=== PATIENT | female | born 2000 | race Caucasian/White ===

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

== ENCOUNTER 2019-04-07 19:46 | Emergency (ER) | payer MEDICAID ==
[~2019-04-07] VITALS: Ht 167.6 cm; Wt 88.5 kg
--- NOTE | 2019-04-07 20:16 | ED Lower Extremity ---
General Chief Complaint: Lower Extremity Stated Complaint: R ANKLE INJ Nursing Triage Note: PT STATES SHE ROLLED HER ANKLE AROUIND 1500, UNABLE TO PUT WEIGHT ON IT. Source: patient Exam Limitations: no limitations History of Present Illness Date Seen by Provider: Apr 07, 2019 Time Seen by Provider: 20:15 Initial Comments To ER with reports of having rolled the ankle around 3 PM today. She is unable to put weight on it. Onset: this afternoon Severity: moderate Pain/Injury Location: right ankle Method of Injury: unknown Modifying Factors: Worse With Movement Allergies and Home Medications Allergies Coded Allergies: Penicillins (Verified Allergy, Unknown, 05/20/15) iodine (Verified Allergy, Unknown, HIVES, 05/20/15) Patient Home Medication List Home Medication List Reviewed: Yes Review of Systems Constitutional: see HPI EENTM: see HPI Respiratory: no symptoms reported Cardiovascular: no symptoms reported Genitourinary: no symptoms reported Musculoskeletal: see HPI Skin: no symptoms reported Psychiatric/Neurological: No Symptoms Reported Past Yrynghs-Mwpunt-Jzciwp Hx Patient Social History Alcohol Use: Denies Use Recreational Drug Use: No Smoking Status: Current Everyday Smoker Type Used: Cigarettes Recent Foreign Travel: No Contact w/Someone Who Travel: No Recent Infectious Disease Expo: No Recent Hopitalizations: No Physical Abuse: No Sexual Abuse: No Mistreated: No Fear: No Immunizations Up To Date PED Vaccines UTD: Yes Seasonal Allergies Seasonal Allergies: Yes Past Medical History Surgeries: Yes (TIP OF FINGER REATTACHED-REQUIRED ADDITIONAL SX ON FINGER, LEFT ARM FX) Adenoidectomy, Appendectomy, Orthopedic, Tonsillectomy Respiratory: No Cardiac: No Neurological: Yes Headaches /Migraines Reproductive Disorders: No Sexually Transmitted Disease: No Genitourinary: No Gastrointestinal: No Musculoskeletal: Yes (LOW BACK SPASIMS) Endocrine: No Tonsilitis Cancer: No Psychosocial: No Integumentary: No Blood Disorders: No Physical Exam Vital Signs Vital Signs - First Documented 04/07/19 19:58 Temp 98.2 Pulse 83 Resp 20 B/P (MAP) 128/61 O2 Delivery Room Air Capillary Refill : Height, Weight, BMI Height: 5'6.00" Weight: 195lbs. oz. 88.165610sy; 28.12 BMI Method:Stated General Appearance: WD/WN Respiratory: no respiratory distress, no accessory muscle use Hips: bilateral hip non-tender, bilateral hip normal inspection, bilateral hip normal range of motion Legs: bilateral leg non-tender, bilateral leg normal inspection, bilateral leg normal range of motion Knees: bilateral knee non-tender, bilateral knee normal inspection, bilateral knee normal range of motion Ankles: right ankle pain, right ankle soft tissue tenderness, right ankle swelling Feet: bilateral foot non-tender, bilateral foot normal inspection, bilateral foot normal range of motion Neurologic/Psychiatric: alert, normal mood/affect, oriented x 3 Skin: normal color, warm/dry Progress/Results/Core Measures Results/Orders My Orders Orders - ARIK LIAO APRN Ankle, Right, 3 Views (04/07/19 20:12) Vital Signs/I&O 04/07/19 19:58 Temp 98.2 Pulse 83 Resp 20 B/P (MAP) 128/61 O2 Delivery Room Air Diagnostic Imaging Diagonstic Imaging: Xray Comments NAME: [facility] REC#: [id number] PT STATUS: REG ER : 2000 PHYSICIAN: ARIK LIAO APRN ADMIT DATE: 04/07/19/ER Draft Date of Exam:04/07/19 ANKLE, RIGHT, 3 VIEWS INDICATION: Rolled ankle stepping off a porch. Pain. EXAMINATION: Right ankle 04/07/2019 FINDINGS: Three views of the ankle. Soft tissue prominence about the ankle is noted. Ankle mortise, however, is intact. No dislocations are seen with no displaced fractures noted. A linear lucency along the distal fibula most likely the residual faint growth plate less likely a nondisplaced fracture line best seen on the oblique view. Remaining osseous structures appear unremarkable. IMPRESSION: 1. Diffuse soft tissue swelling with a very vague lucency along the distal fibula noted but possibly caused by the normal site of the patient's growth plates, see above discussion. If pain persists, 7-10 day followup recommended. Dictated on workstation # [id number] Dict: 04/07/192024 Trans: 04/07/192029 [facility] [id number] Interpreted by: SANTI HANDY MD Electronically signed by: Departure Impression Primary Impression: Ankle sprain Qualified Codes: S93.401A - Sprain of unspecified ligament of right ankle, initial encounter Disposition: 01 HOME, SELF-CARE Condition: Stable Departure-Patient Inst. Decision time for Depature: 20:35 Referrals: DEBORAH LAWRENCE MD (PCP/Family) Primary Care Physician Patient Instructions: Ankle Sprain (DC) Add. Discharge Instructions: 1. Keep the Jakob wrap on for the next 2-3 days to help limit swelling. Use an ice pack as much as possible for 30 minutes every 1-2 hours for the next 2-3 days. Keep this elevated as much as possible for the next 2-3 days. Take Tylenol and ibuprofen as needed for pain control. Use the crutches. Whenever you are able to walk without significant pain and you can stop using the crutches. Wear the ankle brace for the next 2-3 weeks. Follow-up with your doctor next week for reevaluation which may or may not include x-rays repeated if pain persists. All discharge instructions reviewed with patient and/or family. Voiced understanding. ARIK LIAO APRN Apr 07, 2019 20:16
--- NOTE | 2019-04-07 20:31 | Diagnostic Imaging Report ---
INDICATION: Rolled ankle stepping off a porch. Pain. EXAMINATION: Right ankle 04/07/2019 FINDINGS: Three views of the ankle. Soft tissue prominence about the ankle is noted. Ankle mortise, however, is intact. No dislocations are seen with no displaced fractures noted. A linear lucency along the distal fibula most likely the residual faint growth plate less likely a nondisplaced fracture line best seen on the oblique view. Remaining osseous structures appear unremarkable. IMPRESSION: 1. Diffuse soft tissue swelling with a very vague lucency along the distal fibula noted but possibly caused by the normal site of the patient's growth plates, see above discussion. If pain persists, 7-10 day followup recommended. Dictated by: Dictated on workstation # [id number]
== END 2019-04-07 20:58 | disposition home or self-care (01) ==
LOC: EDUNIT# 19:46 → ER 19:47
DX: S93.401A Sprain of unspecified ligament of right ankle, initial encounter (principal); G43.909 Migraine, unspecified, not intractable, without status migrainosus; F17.210 Nicotine dependence, cigarettes, uncomplicated; Z90.49 Acquired absence of other specified parts of digestive tract; Z90.89 Acquired absence of other organs; Z88.0 Allergy status to penicillin; Z91.041 Radiographic dye allergy status; X50.1XXA Overexertion from prolonged static or awkward postures, initial encounter
CPT/HCPCS: 73610

== ENCOUNTER 2020-09-20 11:41 | Emergency (ER) | payer SELFPAY ==
[~2020-09-20] VITALS: Ht 167.7 cm; Wt 72.7 kg
--- NOTE | 2020-09-20 12:10 | ED Upper Extremity ---
General Chief Complaint: Upper Extremity Stated Complaint: R HAND INDEX FINGER SWELLING Nursing Triage Note: AMB TO ROOM CRYING REPORTS THAT SINCE YESTERDAY HAS HAD PAIN AND SWELLING IN R INDEX FINGER NO INJURY Nursing Sepsis Screen: No Definite Risk Source: patient Exam Limitations: no limitations History of Present Illness Date Seen by Provider: Sep 20, 2020 Time Seen by Provider: 12:09 Initial Comments This is a 19 yo Female who presents to the ER with complaints of right index finger pain 2 days. states she noted a splinter in her finger and attempted to pick it out. Yesterday, became red and painful and started swelling today. Denies any trauma to the area. Does admit to recently utilizing methamphetamines yesterday via smoking. Currently rates pain 10 out of 10 and her right index finger and at the base of her finger in her palm. Denies fevers, chills, cough, shortness of breath, nausea, vomiting, diarrhea. Allergies and Home Medications Allergies Coded Allergies: Penicillins (Verified Allergy, Unknown, 05/20/15) iodine (Verified Allergy, Unknown, HIVES, 05/20/15) Patient Home Medication List Home Medication List Reviewed: Yes Review of Systems Constitutional: no symptoms reported EENTM: no symptoms reported Respiratory: no symptoms reported Cardiovascular: no symptoms reported Gastrointestinal: no symptoms reported Genitourinary: no symptoms reported : No Musculoskeletal: other (right index finger pain.) Skin: other ( Erythema and swelling to right index finger extending past her knuckle ) Psychiatric/Neurological: Anxiety Past Ryfueua-Ierllx-Augpty Hx Patient Social History Alcohol Use: Occasionally Uses Recreational Drug Use: Yes (METH) Smoking Status: Current Everyday Smoker Type Used: Cigarettes Recent Foreign Travel: No Contact w/Someone Who Travel: No Recent Infectious Disease Expo: No Recent Hopitalizations: No Immunizations Up To Date PED Vaccines UTD: Yes Seasonal Allergies Seasonal Allergies: Yes Past Medical History Surgeries: Yes (TIP OF FINGER REATTACHED-REQUIRED ADDITIONAL SX ON FINGER, LEFT ARM FX) Adenoidectomy, Appendectomy, Orthopedic, Tonsillectomy Respiratory: No Cardiac: No Neurological: Yes Headaches /Migraines Reproductive Disorders: No Sexually Transmitted Disease: No Genitourinary: No Gastrointestinal: No Musculoskeletal: Yes (LOW BACK SPASIMS) Endocrine: No Tonsilitis Cancer: No Psychosocial: No Integumentary: No Blood Disorders: No Physical Exam Vital Signs Vital Signs - First Documented 09/20/20 11:57 Temp 37.0 Pulse 100 Resp 18 B/P (MAP) 136/86 (103) Pulse Ox 99 O2 Delivery Room Air Capillary Refill : Less Than 3 Seconds Height, Weight, BMI Height: 5'6.00" Weight: 195lbs. oz. 88.865506tx; 25.00 BMI Method:Stated General Appearance: WD/WN, no apparent distress HEENT: normal ENT inspection, pharynx normal Neck: full range of motion, normal inspection Cardiovascular: regular rate, rhythm, no murmur Respiratory: normal breath sounds, no respiratory distress Gastrointestinal: normal bowel sounds, non tender, soft Back: normal inspection, no vertebral tenderness Shoulder: normal inspection, normal ROM Elbow/Forearm: normal inspection, non-tender, no evidence of injury, normal ROM Wrist: Yes normal inspection, Yes non-tender, Yes no evidence of injury, Yes normal ROM Hand: soft tissue tenderness (Right index finger extending proximally past her knuckle on the volar and dorsal aspects of her hand ), swelling Neurologic/Psychiatric: no motor/sensory deficits, alert, normal mood/affect, oriented x 3 Skin: normal color, warm/dry Progress/Results/Core Measures Results/Orders Lab Results Laboratory Tests Test 09/20/20 12:09 09/20/20 12:28 09/20/20 12:33 09/20/20 16:20 Range/Units Urine Color ORANGE Urine Clarity CLEAR Urine pH 6.0 5-9 [address] [place] >=1.030 1.016-1.022 Urine Protein NEGATIVE NEGATIVE Urine Glucose (UA) NEGATIVE NEGATIVE Urine Ketones NEGATIVE NEGATIVE Urine Nitrite NEGATIVE NEGATIVE Urine Bilirubin NEGATIVE NEGATIVE Urine Urobilinogen 0.2 < = 1.0 MG/DL Urine Leukocyte Esterase 1+ H NEGATIVE Urine RBC (Auto) NEGATIVE NEGATIVE Urine RBC NONE /HPF Urine WBC 25-50 H /HPF Urine Squamous Epithelial Cells 2-5 /HPF Urine Crystals PRESENT H /LPF Urine Calcium Oxalate Crystals FEW H /LPF Urine Bacteria FEW H /HPF Urine Casts NONE /LPF Urine Mucus SMALL H /LPF Urine Trichomonas FEW H /HPF Urine Culture Indicated YES White Blood Count 13.2 H 4.3-11.0 10^3/uL Red Blood Count 4.20 3.80-5.11 10^6/uL Hemoglobin 13.0 11.5-16.0 g/dL Hematocrit 40 35-52 % Mean Corpuscular Volume 95 80-99 fL Mean Corpuscular Hemoglobin 31 25-34 pg Mean Corpuscular Hemoglobin Concent 33 32-36 g/dL Red Cell Distribution Width 13.3 10.0-14.5 % Platelet Count 324 130-400 10^3/uL Mean Platelet Volume 8.9 L 9.0-12.2 fL Immature Granulocyte % (Auto) 0 % Neutrophils (%) (Auto) 75 42-75 % Lymphocytes (%) (Auto) 19 12-44 % Monocytes (%) (Auto) 6 0-12 % Eosinophils (%) (Auto) 1 0-10 % Basophils (%) (Auto) 0 0-10 % Neutrophils # (Auto) 9.9 H 1.8-7.8 10^3/uL Lymphocytes # (Auto) 2.5 1.0-4.0 10^3/uL Monocytes # (Auto) 0.7 0.0-1.0 10^3/uL Eosinophils # (Auto) 0.1 0.0-0.3 10^3/uL Basophils # (Auto) 0.0 0.0-0.1 10^3/uL Immature Granulocyte # (Auto) 0.0 0.0-0.1 10^3/uL Sodium Level 142 135-145 MMOL/L Potassium Level 3.6 3.6-5.0 MMOL/L Chloride Level 104 98-107 MMOL/L Carbon Dioxide Level 29 21-32 MMOL/L Anion Gap 9 5-14 MMOL/L Blood Urea Nitrogen 11 7-18 MG/DL Creatinine 0.70 0.60-1.30 MG/DL Estimat Glomerular Filtration Rate > 60 BUN/Creatinine Ratio 16 Glucose Level 82 70-105 MG/DL Calcium Level 9.8 8.5-10.1 MG/DL Corrected Calcium 9.6 8.5-10.1 MG/DL Total Bilirubin 0.3 0.1-1.0 MG/DL Aspartate Amino Transf (AST/SGOT) 15 5-34 U/L Alanine Aminotransferase (ALT/SGPT) 24 0-55 U/L Alkaline Phosphatase 105 40-136 U/L Total Protein 7.2 6.4-8.2 GM/DL Albumin 4.2 3.2-4.5 GM/DL Erythrocyte Sedimentation Rate 19 0-20 MM/HR C-Reactive Protein High Sensitivity 1.20 H 0.00-0.50 MG/DL Coronavirus 2019 (STEF) Negative Negative My Orders Orders - COY GARCIA [employer] Ua Culture If Indicated (09/20/20 12:04) Urine Bedside - Sdc (09/20/20 12:04) Neisseria Gonorrhea Swab (09/20/20 12:04) Genital Culture (09/20/20 12:04) Chlamydia Trachomatis Swab (09/20/20 12:04) Finger(S) (09/20/20 12:04) Cbc With Automated Diff (09/20/20 12:04) Comprehensive Metabolic Panel (09/20/20 12:04) Fentanyl Injection (Sublimaze Injection (09/20/20 12:15) Urine Culture (09/20/20 12:09) Blood Culture (09/20/20 12:58) Fentanyl Injection (Sublimaze Injection (09/20/20 13:15) Clindamycin 600 Mg/50 Ml Ivpb (Cleocin P (09/20/20 14:00) Hydromorphone Injection (Dilaudid Inject (09/20/20 14:00) Hs C Reactive Protein (09/20/20 14:33) Erythrocyte Sedimentation Rate (09/20/20 14:33) Covid 19 Inhouse Test (09/20/20 16:16) Hydromorphone Injection (Dilaudid Inject (09/20/20 16:45) Medications Given in ED Current Medications Medications Dose Ordered Sig/Wilfrid Route Start Time Stop Time Status Last Admin Dose Admin Clindamycin Phosphate/Dextrose 50 ml @ 100 mls/hr ONCE ONCE IV 09/20/20 14:00 09/20/20 14:29 DC 09/20/20 14:27 100 MLS/HR Fentanyl Citrate 25 mcg ONCE PRN IVP 09/20/20 12:15 09/20/20 13:25 25 MCG Fentanyl Citrate 50 mcg ONCE ONCE IVP 09/20/20 13:15 09/20/20 13:16 DC 09/20/20 13:26 50 MCG Hydromorphone HCl 0.25 mg ONCE ONCE IVP 09/20/20 14:00 09/20/20 14:01 DC 09/20/20 14:24 0.25 MG Hydromorphone HCl 0.5 mg ONCE ONCE IV 09/20/20 16:45 09/20/20 16:46 DC 09/20/20 16:40 0.5 MG Vital Signs/I&O 09/20/20 09/20/20 11:57 15:54 Temp 37.0 Pulse 100 86 Resp 18 B/P (MAP) 136/86 (103) 129/68 (88) Pulse Ox 99 100 O2 Delivery Room Air Blood Pressure Mean: 103 Progress Progress Note : Progress Note Orders placed for labs, and radiographs of right index finger. Images show NAD. Orders placed for Clindamycin 600MG IV. Patient will likely require incision and drainage as well as IV antibiotics. 1336: CALLED DR. BOATENG AND DISCUSSED CASE, RECOMMENDED REFERRING TO HAND SURGEON IF AVAILABLE. 1345: ATTEMPTED TO CALL DR. PEDERSON HAND SPECIALIST AT [address], PENDING RETURN CALL. 1420: UNABLE TO MAKE CONTACT WITH DR. PEDERSON, CALLED [facility] AT THIS TIME. PATIENT DECLINED D/T HOSPITAL DIVERSION. 1421: [place] [facility], CONSULTED WITH DR. GUERIN WHO RECOMMENDED INCISION AND DRAINAGE WITH IV ANTIBIOTICS. PATIENT TRANSFER WAS DECLINED DUE TO HOSPITAL DIVERSION. 1430: CALLED [facility] [place] AT THIS TIME, DECLINED PATIENT TRANSFER DUE TO HOSPITAL DIVERSION. 1435: CALLED [facility] AT THIS TIME, PENDING RETURN CALL REGARDING PATIENT TRANSFER. 1456: CALLED DR. ROCHA ORTHOPEDIC SURGEON AT THIS TIME, DECLINED STATING PATIENT REQUIRED HAND SPECIALIST. 1458: CALLED DR. BRAVO ORTHOPEDIC SURGEON AT [facility], RECOMMENDED TRANSFER TO HAND SPECIALIST DUE TO RISK OF FLEXOR TENDON INFECTION. 1500: DECLINED ADMISSION. 1608: CALLED [facility] AT THIS TIME TO HELP FIND AVAILABLE HOSPITAL TRANSFER. 1609: CALLED [facility] FOR TRANSFER AT THIS TIME, PENDING RETURN CALL. 1635: [facility] RETURNED CALL WITH POSSIBLE EXCEPTING AT [facility] [address]. SMALLS TRANSFER DOCTOR AND DR. LUGO ACCEPTED PATIENT TRANSFER AT THIS TIME, REQUESTED NPO STATUS AND RAPID COVID. Diagnostic Imaging Diagonstic Imaging: Xray Plain Films/CT/US/NM/MRI: hand Comments NAME: JOSE SNOW Stacey MED REC#: [id number] PT STATUS: REG ER : 2000 PHYSICIAN: COY GARCIA APRN ADMIT DATE: 09/20/20/ER Signed Date of Exam:09/20/20 FINGER(S) INDICATION: Right index finger pain and swelling. TECHNIQUE: AP, oblique, and lateral views of the right hand were obtained. FINDINGS: No fracture or acute bony abnormality is seen. The joint spaces are unremarkable. IMPRESSION: Negative right hand. Dictated by: Dictated on workstation # [id number] Dict: 09/20/20 1300 Trans: 09/20/20 1431 [id number] Interpreted by: ANN EASTMAN MD Electronically signed by: ANN EASTMAN MD 09/20/20 1431 Departure Impression Primary Impression: Cellulitis of finger, right Disposition: XF T-[facility] Condition: Stable/Unchanged Transfer Transfer Reason: Exceeds level of care Time Spoke to Accepting Phy: 16:[address] SMALLS AND DR. LUGO Transfer Facility: [facility] Method of Transfer: EMS Departure-Patient Inst. Referrals: DEBORAH LAWRENCE MD (PCP/Family) Primary Care Physician COY GARCIA APRN Sep 20, 2020 12:10
[2020-09-20 12:16] LABS: BILIRUBIN,URINE NEGATIVE (NEGATIVE); CLARITY,URINE CLEAR; COLOR,URINE ORANGE; GLUCOSE, URINE (UA) NEGATIVE (NEGATIVE); KETONES,URINE NEGATIVE (NEGATIVE); LEUKOCYTE ESTERASE ,URINE 1+ (NEGATIVE); NITRITE,URINE NEGATIVE (NEGATIVE); PROTEIN,URINE NEGATIVE (NEGATIVE)
[2020-09-20 12:29] LABS: BACTERIA,URINE FEW /HPF; CALCIUM OXALATE CRYSTALS,UR FEW /LPF; TRICHOMONAS,URINE FEW /HPF; WBC,URINE 25-50 /HPF
[2020-09-20] MEDS: fentaNYL INJECTION 100 MCG/2 ML AMP IVP PRN ×3 (12:35→13:25)
[2020-09-20 12:36] LABS: BASOPHILS % (AUTO) 0 % (0-10); EOSINOPHILS # (AUTO) 0.1 10^3/uL (0.0-0.3); EOSINOPHILS % (AUTO) 1 % (0-10); HEMATOCRIT 40 % (35-52); LYMPHOCYTES # (AUTO) 2.5 10^3/uL (1.0-4.0); LYMPHOCYTES % (AUTO) 19 % (12-44); MEAN CORPUSCULAR HEMOGLOBIN 31 pg (25-34); MEAN CORPUSCULAR HGB CONC 33 g/dL (32-36); MEAN CORPUSCULAR VOLUME 95 fL (80-99); MEAN PLATELET VOLUME 8.9 fL (9.0-12.2); MONOCYTES # (AUTO) 0.7 10^3/uL (0.0-1.0); MONOCYTES % (AUTO) 6 % (0-12); NEUTROPHILS # (AUTO) 9.9 10^3/uL (1.8-7.8); NEUTROPHILS % (AUTO) 75 % (42-75); PLATELET COUNT 324 10^3/uL (130-400); WHITE BLOOD COUNT 13.2 10^3/uL (4.3-11.0)
[2020-09-20 12:58] LABS: ALANINE AMINOTRANSFERASE 24 U/L (0-55); ALBUMIN 4.2 GM/DL (3.2-4.5); ALKALINE PHOSPHATASE 105 U/L (40-136); BILIRUBIN,TOTAL 0.3 MG/DL (0.1-1.0); BUN/CREATININE RATIO 16; CALCIUM 9.8 MG/DL (8.5-10.1); CARBON DIOXIDE 29 MMOL/L (21-32); CHLORIDE 104 MMOL/L (98-107); GFR ESTIMATED > 60; GLUCOSE 82 MG/DL (70-105); POTASSIUM 3.6 MMOL/L (3.6-5.0); SODIUM 142 MMOL/L (135-145); TOTAL PROTEIN 7.2 GM/DL (6.4-8.2)
--- NOTE | 2020-09-20 13:03 | Diagnostic Imaging Report ---
INDICATION: Right index finger pain and swelling. TECHNIQUE: AP, oblique, and lateral views of the right hand were obtained. FINDINGS: No fracture or acute bony abnormality is seen. The joint spaces are unremarkable. IMPRESSION: Negative right hand. Dictated by: Dictated on workstation # [id number]
[2020-09-20] MEDS ORDERED: fentaNYL INJECTION 100 MCG/2 ML AMP IVP ONE (13:15)
[2020-09-20] MEDS ORDERED: HYDROmorphone 2 MG/ML VIAL (DILAUDID) IVP ONE (14:00)
[2020-09-20] MEDS ORDERED: CLINDAMYCIN 600 MG/50 ML IVPB 50 ML IV ONE (14:00)
--- NOTE | 2020-09-20 15:03 | NUR ---
EYES CLOSED RESTING AFTER LAST DOSE OF PAIN MEDS.
--- NOTE | 2020-09-20 15:57 | NUR ---
S RADHA CON'T TO LOOK FOR HOSPITAL TO SEND TO.
--- NOTE | 2020-09-20 16:20 | NUR ---
[facility] CALLED AND INFORMED OF TRANSFER
--- NOTE | 2020-09-20 16:24 | NUR ---
[facility] [address] [facility]EPTED WILL CALL WITH ROOM.
[2020-09-20] MEDS ORDERED: HYDROmorphone 2 MG/ML VIAL (DILAUDID) IV ONE (16:45)
--- NOTE | 2020-09-20 17:03 | NUR ---
FACE SHEET FAXED TO [facility] [address]
--- NOTE | 2020-09-20 17:49 | NUR ---
EMS CALLED FOR TRANSFER
--- NOTE | 2020-09-20 18:20 | NUR ---
TALKED WITH PATIENT MOTHER BY HER CELL PHONE INFORMED HER ABOUT TRANSFER WOULD CHECK ON VISITATION WHEN REPORT CALLED.
--- NOTE | 2020-09-20 18:23 | NUR ---
EMS HERE FOR TRANSFER.
--- NOTE | 2020-09-20 18:23 | NUR ---
PATIENT INFORMED THAT [facility] VISITATION IS ONE PATINET PER DAY.
[2020-09-20 18:25] VITALS: BP 132/79
--- NOTE | 2020-09-20 18:25 | NUR ---
TRANSFER CENTER AT [facility] NOTIFIED PATIENT HAS JUST LEFT.
== END 2020-09-20 18:25 | disposition short-term general hospital (02) ==
LOC: EDUNIT# 11:41 → ER 11:45
DX: L03.011 Cellulitis of right finger (principal); F41.9 Anxiety disorder, unspecified; F17.210 Nicotine dependence, cigarettes, uncomplicated; Z88.0 Allergy status to penicillin; Z91.041 Radiographic dye allergy status; Z20.828 Contact with and (suspected) exposure to other viral communicable diseases
CPT/HCPCS: 73140; 80053; 81000; 84703; 85025; 85652; 86141; 87040; 87088; 99284; U0002; 36415; 87635

== ENCOUNTER 2022-04-21 18:17 | Emergency (ER) | payer SELFPAY ==
[~2022-04-21] VITALS: Ht 167.7 cm; Wt 73.5 kg
[2022-04-21 18:22] VITALS: BP 114/72
--- NOTE | 2022-04-21 18:39 | ED Upper Extremity ---
General Chief Complaint: Trauma-Non Activation Stated Complaint: FACE,SHOULDER,WRIST PAIN, BUCKED OFF OF HORSE Source: patient Exam Limitations: no limitations (MARCOS NEGRETE) History of Present Illness Date Seen by Provider: Apr 21, 2022 Time Seen by Provider: 18:36 Initial Comments Patient is a 21-year-old female who presents ED with facial pain, left shoulder pain, right arm pain, left knee pain. Patient states she was riding her horse when she got bucked off around 4 PM yesterday landing on her face on the curb. No loss of conscious or blood thinners. She reports swelling to the right face and pain to the left posterior arm worse with any movement. She did land on her left knee but able to walk with a mild limp. She has some bruising swelling to the right forearm with some very minimal discomfort to her left wrist. She took ibuprofen yesterday but no pain medication today. She she reports mild headache and dizziness. No nausea, vomiting, diarrhea, chest pain, neck pain, middle lower back pain, abdominal pain or concern for . (MARCOS NEGRETE) Allergies and Home Medications Allergies Coded Allergies: Penicillins (Verified Allergy, Unknown, 05/20/15) iodine (Verified Allergy, Unknown, HIVES, 05/20/15) Patient Home Medication List Home Medication List Reviewed: Yes (MARCOS NEGRETE) Ibuprofen (Ibuprofen) 800 Mg Tablet, 800 MG PO Q8H PRN for PAIN Prescribed by: JAMESON BETANCOURT on 04/21/22 193 [Bcp] , (Reported) Entered as Reported by: ANGELO APARICIO on 12/03/161942 Review of Systems Constitutional: No chills, No diaphoresis, No malaise EENTM: No ear pain, No blurred vision, No double vision Respiratory: No cough, No dyspnea on exertion Cardiovascular: No chest pain, No edema Gastrointestinal: No abdominal pain, No diarrhea, No nausea, No vomiting Genitourinary: No decreased output, No discharge Musculoskeletal: joint pain, joint swelling, muscle pain, muscle stiffness Skin: change in color (MARCOS NEGRETE) All Other Systems Reviewed Negative Unless Noted: Yes (MARCOS NEGRETE) Past Pbterhy-Nxuseo-Ujiigl Hx Immunizations Up To Date PED Vaccines UTD: Yes (MARCOS NEGRETE) Seasonal Allergies Seasonal Allergies: Yes (MARCOS NEGRETE) Past Medical History Surgeries: Yes (TIP OF FINGER REATTACHED-REQUIRED ADDITIONAL SX ON FINGER, LEFT ARM FX) Adenoidectomy, Appendectomy, Orthopedic, Tonsillectomy Respiratory: No Cardiac: No Neurological: Yes Headaches /Migraines Reproductive Disorders: No Sexually Transmitted Disease: No Genitourinary: No Gastrointestinal: No Musculoskeletal: Yes (LOW BACK SPASIMS) Endocrine: No Tonsilitis Cancer: No Psychosocial: No Integumentary: No Blood Disorders: No (MARCOS NEGRETE) Physical Exam Vital Signs Vital Signs - First Documented 04/21/22 18:22 Temp 36.1 Pulse 106 Resp 18 B/P (MAP) 114/72 (86) Pulse Ox 98 (ELVIN,ISREAL K DO) Vital Signs Capillary Refill : (MARCOS NEGRETE) Height, Weight, BMI Height: 5'6.00" Weight: 195lbs. oz. 88.988061yi; 25.00 BMI Method:Stated General Appearance: WD/WN, no apparent distress HEENT: PERRL/EOMI, normal ENT inspection, TMs normal, pharynx normal, other (Right-sided facial tenderness with swelling) Neck: non-tender, full range of motion, supple Cardiovascular: regular rate, rhythm, no edema, no gallop, no JVD Respiratory: chest non-tender, lungs clear, normal breath sounds Gastrointestinal: normal bowel sounds, non tender, soft Back: normal inspection, no CVA tenderness, no vertebral tenderness Shoulder: normal ROM (Left and right shoulder), pain (Left posterior shoulder), soft tissue tenderness Elbow/Forearm: pain (Right forearm with bruising), swelling (Right forearm with) Wrist: Yes normal inspection, Yes non-tender, Yes no evidence of injury, Yes normal ROM Hand: normal inspection, no evidence of injury Neurologic/Tendon: normal sensation, normal motor functions Neurologic/Psychiatric: parking lot spotter II-XII nml as tested, no motor/sensory deficits, alert Skin: other (Bruising and swelling to the left knee and anterior lower thigh.) Tenderness to left anterior knee with normal active range of motion. No laxity with valgus or varus stress. Negative anterior posterior drawer test (MARCOS NEGRETE) Progress/Results/Core Measures Results/Orders Medications Given in ED Current Medications Medications Dose Ordered Sig/Wilfrid Route Start Time Stop Time Status Last Admin Dose Admin Ibuprofen 600 mg ONCE ONCE PO 04/21/22 18:45 04/21/22 18:46 DC 04/21/22 19:12 600 MG (CRISTO OCONNORA Calos GRANADOS) Vital Signs/I&O 04/21/22 18:22 Temp 36.1 Pulse 106 Resp 18 B/P (MAP) 114/72 (86) Pulse Ox 98 (CRISTO OCONNORA Calos GRANADOS) Departure Communication (PCP) Patient is a 21-year-old female who presents ED for facial pain bilateral arm pain left knee pain and some mild hip pain after a fall yesterday off a horse. GCS of 15. Alert and orient x3. She is moving all extremities without difficulties beside some pain discomfort to left shoulder, right forearm and left knee. Patient is able to ambulate. After fall denies loss of consciousness. She states when she fell she hit a curb with most of her weight landing on her left shoulder and face. She has a contusion mild swelling to the right side of face. CT scan the head and maxillofacial negative for acute fracture or hemorrhaging. Patient cervical, thoracic and lumbar spine without any acute tenderness. She has swelling and bruising to the right forearm with negative x-ray. She has bruising swelling to the left knee with negative x-ray. She was given dose of ibuprofen. She appears well and nontoxic. Neuro exam unremarkable. No chest pain or abdominal pain or concern for . No vomiting or diarrhea. Only complaint is mild headache. If any worsening symptoms return back to ED for further evaluation (MARCOS NEGRETE) Impression Primary Impression: Facial pain Additional Impressions: Arm pain Knee pain Disposition: 01 HOME, SELF-CARE Condition: Stable Departure-Patient Inst. Decision time for Depature: 19:31 (MARCOS NEGRETE) Referrals: [facility] [place] PHYSICIAN (PCP) Primary Care Physician Patient Instructions: Minor Head Injury Scripts Ibuprofen (Ibuprofen) 800 Mg Tablet 800 MG PO Q8H PRN for PAIN, #16 TAB Prov: MARCOS NEGRETE 04/21/22 Work/School Note: Work Release Form Date Seen in the Emergency Department: Apr 21, 2022 Return to Work: Apr 25, 2022 ATTENDING PHYSICIAN NOTE: I WAS PHYSICALLY PRESENT ER PHYSICIAN, BUT I WAS NOT INVOLVED IN ANY DECISION MAKING OR ANY CARE OF THIS PT, AND I AM NOT COLLABORATING PHYSICIAN. (ISREAL OCONNOR DO) MARCOS NEGRETE Apr 21, 2022 18:39 ISREAL OCONNOR DO Apr 22, 2022 02:06
[2022-04-21] MEDS ORDERED: IBUPROFEN 600 MG (MOTRIN) TAB PO ONE (18:45)
--- NOTE | 2022-04-21 19:12 | Diagnostic Imaging Report ---
HISTORY: Left knee pain after injury, fall from horse. COMPARISON: None. TECHNIQUE: 3 views of the left knee. FINDINGS: No acute fracture or dislocation is seen in the left knee. Alignment appears normal and joint spaces are preserved. There is no significant joint effusion. IMPRESSION: No acute osseous abnormality is seen in the left knee. Dictated by: Dictated on workstation # [id number]
--- NOTE | 2022-04-21 19:14 | Diagnostic Imaging Report ---
HISTORY: Left shoulder pain after fall. TECHNIQUE: 3 views of the left shoulder. COMPARISON: None. FINDINGS: No acute fracture is seen in the left shoulder. Alignment is normal and joint spaces are preserved. IMPRESSION: No acute osseous abnormality is seen in the left shoulder. Dictated by: Dictated on workstation # [id number]
--- NOTE | 2022-04-21 19:15 | Diagnostic Imaging Report ---
HISTORY: Right forearm pain after fall. TECHNIQUE: 2 views of the right forearm. COMPARISON: None. FINDINGS: No acute fracture is seen in the right forearm. Alignment is normal. Joint spaces are preserved. There is mild soft tissue swelling at the lateral side of the forearm. IMPRESSION: Mild soft tissue swelling at the lateral right forearm with no acute osseous abnormality seen. Dictated by: Dictated on workstation # [id number]
--- NOTE | 2022-04-21 19:28 | Diagnostic Imaging Report ---
PROCEDURE: CT head and maxillofacial without contrast. TECHNIQUE: Multiple contiguous axial images were obtained through the head and facial bones without the use of intravenous contrast. Auto Exposure Controls were utilized during the CT exam to meet ALARA standards for radiation dose reduction. INDICATION: Bucked off a horse. Right-sided facial pain and head pain. No relevant comparison available. FINDINGS: There are no CT findings of acute intracranial hemorrhage. There are no findings of intracranial mass effect or shift. There is no hydrocephalus. There is no abnormal extra-axial fluid collection. [place] and white matter differentiation well-maintained. There are no findings of vasogenic edema. Posterior fossa demonstrates no acute process. The mastoids are clear. There is no acute calvarial abnormality. The CT of the face demonstrates no evidence of a fracture of the bony orbit. The intraorbital contents are unremarkable. There is no displaced nasal bone fracture. There is no evidence of a fracture of the maxilla. The zygomatic arches are intact. The pterygoids are normal. There is no TMJ dislocation or evidence of a mandibular fracture. There are no findings of blood products within the paranasal sinuses or air-fluid level. There is fat stranding demonstrated within the soft tissues of the right cheek compatible with a contusion. IMPRESSION: 1. No CT evidence of an acute intracranial abnormality. 2. Right facial contusion without findings of an acute facial fracture. There are no blood products within the paranasal sinuses. The orbital contents appear normal. Dictated by: Dictated on workstation # [id number]
[2022-04-21] MEDS ORDERED: IBUP-1780 PO (19:33)
== END 2022-04-21 19:46 | disposition home or self-care (01) ==
LOC: EDUNIT# 18:17 → ER 18:21
DX: S00.83XA Contusion of other part of head, initial encounter (principal); S50.11XA Contusion of right forearm, initial encounter; S80.02XA Contusion of left knee, initial encounter; M79.601 Pain in right arm; M79.602 Pain in left arm; M25.559 Pain in unspecified hip; M25.512 Pain in left shoulder; V80.010A Animal-rider injured by fall from or being thrown from horse in noncollision accident, initial encounter
CPT/HCPCS: 70450; 70486; 73030; 73090; 73562; 99281